=== PATIENT | male | born 1985 | race African-American/Black ===

== ENCOUNTER 2017-06-11 18:48 | Emergency (ER) | payer SELFPAY ==
[~2017-06-11] VITALS: Ht 182.9 cm; Wt 88.5 kg
[2017-06-11 19:43] VITALS: BP 140/92
[2017-06-11] MEDS ORDERED: IBUPROFEN 600 MG TAB PO ONE (22:15)
== END 2017-06-11 22:07 | disposition home or self-care (01) ==
LOC: ER 18:48
DX: S82.61XA Displaced fracture of lateral malleolus of right fibula, initial encounter for closed fracture (principal); F17.210 Nicotine dependence, cigarettes, uncomplicated; X50.0XXA Overexertion from strenuous movement or load, initial encounter; Y93.89 Activity, other specified; Y99.8 Other external cause status; Y92.89 Other specified places as the place of occurrence of the external cause
CPT/HCPCS: 29515; 73610